=== PATIENT | female | born 1995 | race Caucasian/White ===

== ENCOUNTER 2017-02-05 12:28 | Emergency (ER) | payer MEDICAID ==
[2017-02-05 12:36] VITALS: TEMP 98.1
--- NOTE | 2017-02-05 13:14 | EDPHY ---
H & P Stated Complaint: Known allergy to bee;stung LFA;used epipen;tightness in throat Time Seen by Provider: 02/05/17 12:49 HPI/ROS: CHIEF COMPLAINT: Bee sting HISTORY OF PRESENT ILLNESS: This is a 21-year-old female who was stung on the left arm by a flying insect. She did not see the insect. She carries an EpiPen which she used. She was given the EpiPen about 10 years ago after being simultaneously stung multiple times by bees. At that time she did not have an adverse reaction but it was thought that she might have one if she was stung again. Today she felt some slight tightness in her throat. She did not have trouble breathing. She has not developed hives or itching. She does not feel faint or lightheaded. REVIEW OF SYSTEMS: A ten point review of systems was performed and is negative with the exception of the items mentioned in the HPI. - Personal History LMP (Females 10-55): 8-14 Days Ago Current Tetanus Diphtheria and Acellular Pertussis (TDAP): Yes - Medical/Surgical History Other PMH: bee allergy - Social History Smoking Status: Never smoked Drug Use: None Additional Social History: She is single. - Physical Exam Exam: General Appearance: Alert. Vital signs reviewed. BP 164/110 in triage. Eyes: Pupils equal and round, no conjunctival injection, no discharge. Anicteric. ENT, Mouth: Mucous membranes are moist, no oropharyngeal erythema or edema. Swallowing easily. Neck: Trachea midline. Respiratory: Lungs are clear to auscultation; no wheezes, rales, or rhonchi. Cardiovascular: Regular rate and rhythm; no murmur, rub, or gallop. Not tachycardic at time of my exam. Gastrointestinal: Abdomen is soft and nontender, no masses or organomegaly, bowel sounds normal. Skin: Warm and dry, no rashes on exposed skin, normal color. No hives. Back: Nontender to palpation over the thoracolumbar spine. Extremities: No lower extremity edema, no calf tenderness or swelling. Neurological: Alert and oriented. Moving all four extremities easily and equally. Psychiatric: Normal affect. Constitutional: Initial Vital Signs Temperature (C) 36.7 C 02/05/17 12:30 Heart Rate 92 02/05/17 12:30 Respiratory Rate 18 02/05/17 12:30 Blood Pressure 164/110 H 02/05/17 12:30 O2 Sat (%) 96 02/05/17 12:30 O2 Delivery Mode Room Air Allergies/Adverse Reactions: No Known Allergies Allergy (Verified 02/05/17 12:33) Home Medications: Medication Instructions Recorded Lisinopril 08/04/12 EPINEPHrine [Epipen 0.3 MG] 0.3 mg IM ONCE 02/05/17 EPINEPHrine [Epipen 0.3 MG] 0.3 mg IM ONCE #1 syr 02/05/17 Medical Decision Making ED Course/Re-evaluation: Patient used own EpiPen prior to arrival. At the time of my exam there is no oral pharyngeal swelling, wheezing, urticaria, or other signs of an allergic reaction. We have agreed to watch and wait for a bit before proceeding with additional treatments. She was observed for almost two hours in the ED, during which time she did not develop signs of anaphylaxis/allergy. No urticaria. She is discharged home with RX for epipen. She understands that she has not had signs/sx of anaphylaxis or allergy and that she might not need epipen. She also understands that it is not dangerous for her to use it if she is at all concerned that she might be experiencing symptoms of allergy/anaphylaxis. She does not know what stung her today--perhaps it was an insect to which she is not allergic. Departure - Departure Disposition: Home, Routine, Self-Care Clinical Impression: Insect sting Qualifiers: Encounter type: initial encounter Injury intent: accidental or unintentional Qualified Code(s): T63.481A - Toxic effect of venom of other arthropod, accidental (unintentional), initial encounter Condition: Good Instructions: Insect Bite or Sting (ED) Referrals: Lynsey Pruitt MD [Medical Doctor] - As per Instructions Prescriptions: EPINEPHrine [Epipen 0.3 MG] 0.3 mg IM ONCE #1 syr
[2017-02-05 13:43] VITALS: RESP 16
[2017-02-05 14:37] VITALS: BP 147/105; PULSE 79; O2SAT 96
== END 2017-02-05 14:36 | disposition home or self-care (01) ==
DX: T63.481A Toxic effect of venom of other arthropod, accidental (unintentional), initial encounter (principal)